=== PATIENT | female | born 1970 | race Caucasian/White ===

== ENCOUNTER 2021-12-18 19:08 | Emergency (ER) | payer SELFPAY ==
[2021-12-18 19:30] VITALS: BP 131/91; PULSE 95; RESP 18; TEMP 98.1; BMI 21.2
[2021-12-18] MEDS ORDERED: IBUPROFEN 600 MG TABLET (FP) PO ONE ×2 (21:52→22:02)
[2021-12-18] MEDS ORDERED: ACETAMINOPHEN 500 MG TABLET (FP) PO ONE (21:52)
[2021-12-18] MEDS ORDERED: ACETAMINOPHEN 500 MG TABLET (FP) ONE (22:02)
== END 2021-12-18 23:28 | disposition home or self-care (01) ==
LOC: JERFT 19:08
DX: S99.912A Unspecified injury of left ankle, initial encounter (principal); X50.9XXA Other and unspecified overexertion or strenuous movements or postures, initial encounter
CPT/HCPCS: 73610-TC-LT-FY; 99283-25